=== PATIENT | male | born 1945 | race Caucasian/White ===

== ENCOUNTER 2016-10-07 00:01 | Inpatient (IN) | payer MEDICARE, OTHER ==
[~2016-10-07] VITALS: Ht 177.8 cm; Wt 101.7 kg
[2016-10-07] VITALS (7 sets, daily range): BP systolic 134–157; BP diastolic 58–87; PULSE 59–669; TEMP 97.4–98.5
[~2016-10-07 00:01] MED LIST: ACTOS 45MG45 MG/TAB PO; ADALAT CC30 MG PO; FLOMAX 0.40.4 MG/CAP PO; FORTAMET1000 MG PO; HCTZ 25MG25 MG PO; LOTREL 10 MG-401 CAP PO; PROSCAR PO; VYTORIN
[2016-10-07 00:35] LABS: BASO # 0.1 (0.0-0.2); BASO % 0.6 % (0.0-2.0); EOS # 0.2 (0.0-0.7); EOS % 2.1 % (0-4.0); GRAN # 5.6 (1.4-6.5); GRAN % 65.7 % (42.2-75.2); HEMOGLOBIN 17.9 g/dl (13.5-18.0); LYMPH # 1.8 (1.2-3.4); LYMPH % 20.8 % (20.0-51.0); MEAN CELL VOLUME 88 fl (80.0-100.0); MEAN CORPUSCULAR HEMOGLOBIN 30 pg (27.0-31.0); MEAN CORPUSCULAR HGB CONC 34 g/dl (33.0-37.0); MEAN PLATELET VOLUME 10.6 fl (7.4-10.4); MONO # 0.9 (0.1-0.6); MONO % 10.6 % (1.7-9.3); PLATELET COUNT 151 K/mm3 (130-400); RED BLOOD COUNT 6.06 M/mm3 (4.20-5.60); REDCELL DISTRIBUTION WIDTH-CV 17.2 % (11.5-14.5); WHITE BLOOD COUNT 8.5 K/mm3 (4.8-10.8)
[2016-10-07 00:37] LABS: HEMATOCRIT 53.4 % (42.0-52.0)
[2016-10-07 00:48] LABS: ADJUSTED CALCIUM 9.5 mg/dL (8.4-10.2); ALANINE AMINOTRANSFERASE 35 U/L (21-72); ALBUMIN 4.3 gm/dL (3.5-5.0); ALKALINE PHOSPHATASE 95 U/L (50-136); ANION GAP 15 mmol/L (7-16); BILIRUBIN,TOTAL 0.9 mg/dL (0.0-1.0); BLOOD UREA NITROGEN 25 mg/dL (9-20); CALCIUM 9.7 mg/dL (8.4-10.2); CARBON DIOXIDE 26 mmol/L (22-30); CHLORIDE 101 mmol/L (98-107); CREATININE, serum 1.24 mg/dL (0.66-1.25); GLUCOSE 167 mg/dL (74-106); MAGNESIUM 1.9 mg/dL (1.6-2.3); PHOSPHOROUS 3.9 mg/dL (2.5-4.5); POTASSIUM 3.8 mmol/L (3.4-5.0); SODIUM 141 mmol/L (137-145); TOTAL PROTEIN 7.9 gm/dL (6.4-8.2)
[2016-10-07 00:59] LABS: TROPONIN-I < 0.012 ng/mL (0.000-0.034)
[2016-10-07 01:09] LABS: PARTIAL THROMBOPLASTIN TIME 28.9 SECONDS (26.0-37.0)
[2016-10-07 01:18] LABS: INR 0.9 (0.8-3.0); PROTHROMBIN TIME 10.4 SECONDS (9.7-12.8)
[2016-10-07] MEDS ORDERED: JANUVIA50 MG PO (03:51)
[2016-10-07] MEDS ORDERED: GLUCOTROL 5M5 MG/TAB PO (03:51)
[2016-10-07] MEDS ORDERED: GLUCOPHAGE1000 MG PO (05:17)
[2016-10-07] MEDS ORDERED: VITAMIN C500 MG PO (05:21)
[2016-10-07] MEDS ORDERED: VIAGRA100 M1 PO (05:23)
[2016-10-07] MEDS ORDERED: GLUCOSAMINE & C1 CA1 PO (05:28)
[2016-10-07] MEDS ORDERED: FARXIGA10 PO (05:29)
[2016-10-07] MEDS ORDERED: HYGROTON 2525 MG/TAB PO (05:30)
[2016-10-07] MEDS ORDERED: DEPO-TESTOS100 MG/ML IM (05:46)
[2016-10-08] VITALS (9 sets, daily range): BP systolic 124–163; BP diastolic 58–96; PULSE 53–74; TEMP 9.7
[2016-10-08 11:11] LABS: PH 5 (5-8); SQUAMOUS EPITHELIAL 0-2 /hpf; URINE APPEARANCE Clear; URINE BACTERIA None Seen /hpf; URINE BILIRUBIN Negative (NEGATIVE); URINE BLOOD Negative (NEGATIVE); URINE COLOR Yellow; URINE GLUCOSE 3+ (NEGATIVE); URINE KETONE Negative (NEGATIVE); URINE RBC 0-2 /hpf; URINE UROBILINOGEN Negative (NEGATIVE); URINE WBC 0-2 /hpf
[2016-10-09 03:28] VITALS: BP 161/82; PULSE 56; TEMP 98.1
[2016-10-09 07:57] VITALS: BP 150/84; PULSE 69; TEMP 98.1
[2016-10-09] MEDS ORDERED: PLAVIX 75MG TAB75 MG PO (09:43)
[2016-10-09] MEDS ORDERED: ASPIRIN E.C. 8181 MG PO (09:43)
[2016-10-09] MEDS ORDERED: VYTORIN 10 MG-11 TAB PO (10:07)
[2016-10-09 10:09] VITALS: BP 150/84; PULSE 69; TEMP 98.1
== END 2016-10-09 11:59 | DRG 66 ==
LOC: COL.ER 00:01 → MEDICAL 01:40
PROVIDERS: Emergency Medicine; Family Medicine
DX: I63.9 Cerebral infarction, unspecified (principal); E11.9 Type 2 diabetes mellitus without complications; E78.5 Hyperlipidemia, unspecified; I10 Essential (primary) hypertension; H53.2 Diplopia; R26.0 Ataxic gait; R27.8 Other lack of coordination; Z79.84 Long term (current) use of oral hypoglycemic drugs; Z87.891 Personal history of nicotine dependence
CPT/HCPCS: 99222-AI; 99232-AI; 99239; A9585; G9654; J1650; J1815; J2704; J3360; J7030

== ENCOUNTER 2016-10-09 11:28 | Inpatient (IN) | payer MEDICARE, OTHER ==
[~2016-10-09] VITALS: Ht 177.8 cm; Wt 93.1 kg
[~2016-10-09 11:28] MED LIST changes: +ASPIRIN E.C. 8181 MG PO; +DEPO-TESTOS100 MG/ML IM; +FARXIGA10 PO; +GLUCOPHAGE1000 MG PO; +GLUCOSAMINE & C1 CA1 PO; +GLUCOTROL 5M5 MG/TAB PO; +HYGROTON 2525 MG/TAB PO; +JANUVIA50 MG PO; +PLAVIX 75MG TAB75 MG PO; +VIAGRA100 M1 PO; +VITAMIN C500 MG PO; +VYTORIN 10 MG-11 TAB PO
[2016-10-09 13:55] VITALS: BP 157/93; PULSE 73; TEMP 96.8
[2016-10-09 18:00] VITALS: BP 139/89; PULSE 81; TEMP 97
[2016-10-10 05:26] VITALS: BP 149/87; PULSE 68; TEMP 97.6
[2016-10-10 16:19] VITALS: BP 150/86; PULSE 71; TEMP 97.1
[2016-10-11 04:12] VITALS: BP 140/87; PULSE 86; TEMP 97.5
[2016-10-11 16:39] VITALS: BP 145/79; PULSE 97; TEMP 98.5
[2016-10-12 04:08] VITALS: BP 151/82; PULSE 77; TEMP 97.4
[2016-10-12 16:22] VITALS: BP 180/90; PULSE 83; TEMP 97.8
[2016-10-13 04:33] VITALS: BP 164/87; PULSE 67; TEMP 96.9
[2016-10-14 04:18] VITALS: BP 162/82; PULSE 68; TEMP 97
[2016-10-14 14:52] VITALS: BP 163/92; PULSE 75; TEMP 98.4
[2016-10-15 05:24] VITALS: BP 155/88; PULSE 74; TEMP 97.6
[2016-10-15 17:41] VITALS: BP 153/82; PULSE 85; TEMP 98.4
[2016-10-16 06:08] VITALS: BP 174/86; PULSE 69; TEMP 98.1
[2016-10-17 05:00] VITALS: BP 184/72; PULSE 63; TEMP 97.2
[2016-10-17 17:24] VITALS: BP 155/91; PULSE 75; TEMP 97.1
[2016-10-18 02:30] VITALS: BP 172/98; PULSE 65; TEMP 98.5
[2016-10-18 06:42] VITALS: BP 173/91
[2016-10-18] MEDS ORDERED: LOTENSIN20 MG PO (09:58)
[2016-10-18] MEDS ORDERED: PROCARDIA XL 3030 MG PO (09:59)
[2016-10-18 18:02] VITALS: BP 162/87; PULSE 66; TEMP 96.6
[2016-10-19] VITALS (11 sets, daily range): BP systolic 100–167; BP diastolic 60–97; PULSE 71–111; TEMP 97–98.7
[2016-10-19 18:11] LABS: CALCIUM 9.8 mg/dL (8.4-10.2); CREATININE, serum 1.3 mg/dL (0.66-1.25); MAGNESIUM 2.1 mg/dL (1.6-2.3); POTASSIUM 3.9 mmol/L (3.4-5.0)
[2016-10-20 05:52] VITALS: BP 160/86; PULSE 65; TEMP 98.3
[2016-10-20 16:27] VITALS: BP 156/90; PULSE 66; TEMP 97.4
[2016-10-21 05:01] VITALS: BP 168/85; PULSE 65; TEMP 98.5
[2016-10-21 15:55] VITALS: BP 172/74; PULSE 74; TEMP 96.9
[2016-10-22 03:51] VITALS: BP 156/84; PULSE 60; TEMP 98.2
[2016-10-22 17:03] VITALS: BP 154/77; PULSE 70; TEMP 98.6
[2016-10-23 04:58] VITALS: BP 155/86; PULSE 68; TEMP 98.2
[2016-10-23 17:51] VITALS: BP 146/74; PULSE 72; TEMP 97.8
[2016-10-24 04:16] VITALS: BP 155/71; PULSE 69; TEMP 97.5
[2016-10-24] MEDS ORDERED: LOTENSIN 1010 MG/TAB PO (12:32)
== END 2016-10-24 16:30 | disposition home or self-care (01) | DRG 57 ==
PROVIDERS: Internal Medicine
DX: I69.351 Hemiplegia and hemiparesis following cerebral infarction affecting right dominant side (principal); I69.393 Ataxia following cerebral infarction; I69.398 Other sequelae of cerebral infarction; H53.2 Diplopia; I10 Essential (primary) hypertension; E11.9 Type 2 diabetes mellitus without complications
CPT/HCPCS: 99222-AI; 99232-AI; 99233-AI; 99239; J1650; J1815

== ENCOUNTER → 2016-10-31 | Outpatient (CLI) | payer MEDICARE, OTHER ==
[~2016-10-31] MED LIST changes: +LOTENSIN 1010 MG/TAB PO; +LOTENSIN20 MG PO; +PROCARDIA XL 3030 MG PO
== END ==
LOC: COL.RAD 11:20
DX: I63.9 Cerebral infarction, unspecified (principal); I63.8 Other cerebral infarction
CPT/HCPCS: Q9967

== ENCOUNTER 2016-12-25 09:15 | Outpatient (RCR) | payer MEDICARE, OTHER | END 2016-12-28 10:51 | disposition home or self-care (01) | LOC: WSPT 09:15 | DX: I69.354 Hemiplegia and hemiparesis following cerebral infarction affecting left non-dominant side (principal) | CPT/HCPCS: G8978-GP; G8979-GP; G8980-GP; G8987-GO; G8988-GO; G8989-GO ==

== ENCOUNTER 2017-06-16 16:32 | Emergency (ER) | payer MEDICARE, OTHER ==
[~2017-06-16] VITALS: Ht 177.8 cm; Wt 97.3 kg
[2017-06-16 16:38] VITALS: TEMP 98
[2017-06-16] MEDS ORDERED: BYDUREON PEN2 MG SQ (16:55)
[2017-06-16 17:32] LABS: BASO # 0.1 (0.0-0.2); EOS # 0.2 (0.0-0.7); EOS % 2.7 % (0-4.0); GRAN # 4.2 (1.4-6.5); GRAN % 68.4 % (42.2-75.2); HEMATOCRIT 50.2 % (42.0-52.0); HEMOGLOBIN 16.4 g/dl (13.5-18.0); LYMPH # 1.1 (1.2-3.4); LYMPH % 17.3 % (20.0-51.0); MEAN CELL VOLUME 94 fl (80.0-100.0); MEAN CORPUSCULAR HEMOGLOBIN 31 pg (27.0-31.0); MEAN CORPUSCULAR HGB CONC 33 g/dl (33.0-37.0); MEAN PLATELET VOLUME 10.7 fl (7.4-10.4); MONO # 0.6 (0.1-0.6); MONO % 10.3 % (1.7-9.3); PLATELET COUNT 168 K/mm3 (130-400); RED BLOOD COUNT 5.32 M/mm3 (4.20-5.60); WHITE BLOOD COUNT 6.2 K/mm3 (4.8-10.8)
[2017-06-16 17:42] LABS: ALBUMIN 4.6 gm/dL (3.5-5.0); BILIRUBIN,TOTAL 0.6 mg/dL (0.0-1.0); CALCIUM 9.5 mg/dL (8.4-10.2); CREATININE, serum 1.23 mg/dL (0.66-1.25); MAGNESIUM 1.9 mg/dL (1.6-2.3); POTASSIUM 3.9 mmol/L (3.4-5.0); TOTAL PROTEIN 7.5 gm/dL (6.4-8.2)
[2017-06-16 18:14] VITALS: BP 181/94; PULSE 74
== END 2017-06-16 18:14 | disposition home or self-care (01) ==
LOC: COL.ER 16:32
PROVIDERS: Emergency Medicine
DX: R20.2 Paresthesia of skin (principal); E11.9 Type 2 diabetes mellitus without complications; I10 Essential (primary) hypertension; E78.5 Hyperlipidemia, unspecified; Z87.891 Personal history of nicotine dependence; Z86.73 Personal history of transient ischemic attack (TIA), and cerebral infarction without residual deficits; Z79.82 Long term (current) use of aspirin; Z79.84 Long term (current) use of oral hypoglycemic drugs

== ENCOUNTER → 2017-06-17 | Outpatient (CLI) | payer MEDICARE, OTHER ==
[~2017-06-17] MED LIST changes: +BYDUREON PEN2 MG SQ
== END ==
LOC: COL.RAD 08:34
DX: I67.82 Cerebral ischemia (principal); G31.9 Degenerative disease of nervous system, unspecified; I63.9 Cerebral infarction, unspecified
CPT/HCPCS: A9585

== ENCOUNTER 2018-10-02 15:45 | Outpatient (RCR) | payer MEDICARE, OTHER | END 2018-10-06 | disposition home or self-care (01) | LOC: WSPT | DX: I69.398 Other sequelae of cerebral infarction (principal); R26.89 Other abnormalities of gait and mobility | CPT/HCPCS: G8978-GP; G8979-GP ==

== ENCOUNTER 2018-10-20 09:45 | Outpatient (RCR) | payer MEDICARE, OTHER | END 2018-12-09 12:42 | disposition home or self-care (01) | LOC: WSPT 09:45 | DX: I63.542 Cerebral infarction due to unspecified occlusion or stenosis of left cerebellar artery (principal) ==

== ENCOUNTER 2018-12-10 10:45 | Outpatient (RCR) | payer MEDICARE, OTHER | END 2018-12-17 10:26 | disposition home or self-care (01) | LOC: WSPT 10:45 | DX: Z01.818 Encounter for other preprocedural examination (principal) ==

== ENCOUNTER → 2019-03-03 | Outpatient (CLI) | payer MEDICARE, OTHER ==
[2019-03-03 12:18] LABS: BASO # 0.1 (0.0-0.2); BASO % 0.7 % (0.0-2.0); EOS # 0.2 (0.0-0.7); GRAN # 5.1 (1.4-6.5); GRAN % 70.1 % (42.2-75.2); HEMATOCRIT 40.5 % (42.0-52.0); HEMOGLOBIN 13.3 g/dl (13.5-18.0); LYMPH # 1.2 (1.2-3.4); LYMPH % 16.9 % (20.0-51.0); MEAN CELL VOLUME 94 fl (80.0-100.0); MEAN CORPUSCULAR HEMOGLOBIN 31 pg (27.0-31.0); MEAN CORPUSCULAR HGB CONC 33 g/dl (33.0-37.0); MEAN PLATELET VOLUME 10.5 fl (7.4-10.4); MONO # 0.7 (0.1-0.6); PLATELET COUNT 182 K/mm3 (130-400); RED BLOOD COUNT 4.32 M/mm3 (4.20-5.60); REDCELL DISTRIBUTION WIDTH-CV 13.7 % (11.5-14.5)
[2019-03-03 12:42] LABS: ERYTHROCYTE SEDIMENTATION RATE 4 mm/hr (0-30)
== END ==
LOC: COL.LAB 11:55
PROVIDERS: Orthopaedic Surgery Sports Medicine
DX: M25.561 Pain in right knee (principal); Z96.651 Presence of right artificial knee joint

== ENCOUNTER → 2019-03-23 | Outpatient (RCR) | payer MEDICARE, OTHER | END | disposition still patient (30) | LOC: WSPT | DX: M17.11 Unilateral primary osteoarthritis, right knee (principal); Z96.651 Presence of right artificial knee joint | CPT/HCPCS: G0283-GP ==

== ENCOUNTER 2019-04-17 14:09 | Outpatient (RCR) | payer MEDICARE, OTHER | END 2019-04-17 14:30 | disposition home or self-care (01) | LOC: WSPT 14:09 | DX: Z96.651 Presence of right artificial knee joint (principal) | CPT/HCPCS: G0283-GP ==

== ENCOUNTER → 2019-05-14 | Outpatient (CLI) | payer MEDICARE, OTHER | LOC: COL.RAD 15:18 | DX: M25.561 Pain in right knee (principal); Z96.651 Presence of right artificial knee joint ==

== ENCOUNTER 2020-01-20 16:55 | Emergency (ER) | payer MEDICARE, OTHER ==
[~2020-01-20] VITALS: Ht 177.8 cm; Wt 118.2 kg
[2020-01-20 17:17] VITALS: TEMP 98.3
[2020-01-20 18:47] LABS: BASO % 0.5 % (0.0-2.0); EOS # 0.3 (0.0-0.7); EOS % 3.6 % (0-4.0); GRAN # 5.3 (1.4-6.5); GRAN % 71.4 % (42.2-75.2); HEMATOCRIT 39.1 % (42.0-52.0); HEMOGLOBIN 12.8 g/dl (13.5-18.0); LYMPH # 1.2 (1.2-3.4); LYMPH % 15.5 % (20.0-51.0); MEAN CELL VOLUME 94 fl (80.0-100.0); MEAN CORPUSCULAR HEMOGLOBIN 31 pg (27.0-31.0); MEAN CORPUSCULAR HGB CONC 33 g/dl (33.0-37.0); MEAN PLATELET VOLUME 11.4 fl (7.4-10.4); MONO # 0.6 (0.1-0.6); MONO % 8.6 % (1.7-9.3); PLATELET COUNT 169 K/mm3 (130-400); RED BLOOD COUNT 4.18 M/mm3 (4.20-5.60); REDCELL DISTRIBUTION WIDTH-CV 14.6 % (11.5-14.5)
[2020-01-20 18:59] LABS: ANION GAP 11 mmol/L (7-16); BLOOD UREA NITROGEN 38 mg/dL (9-20); CALCIUM 9.4 mg/dL (8.4-10.2); CARBON DIOXIDE 22 mmol/L (22-30); CHLORIDE 104 mmol/L (98-107); CREATININE, serum 1.47 (0.66-1.25); GLUCOSE 288 mg/dL (74-106); POTASSIUM 4.3 mmol/L (3.4-5.0); SODIUM 137 mmol/L (137-145)
[2020-01-20 19:12] LABS: TROPONIN-I < 0.012 ng/mL (0.000-0.035)
[2020-01-20 23:13] VITALS: BP 175/98; PULSE 70
[2020-01-21] MEDS ORDERED: ALLEGRA 180MG180 MG PO (01:07)
[2020-01-21] MEDS ORDERED: LEXAPRO 5MG5 MG PO (01:07)
[2020-01-21] MEDS ORDERED: INSULIN PEN NE1 EAC1 MC (01:08)
[2020-01-21] MEDS ORDERED: BENICAR40 MG PO (01:08)
[2020-01-21] MEDS ORDERED: TOUJEO300 U/ML SQ (01:08)
== END 2020-01-20 23:15 | disposition home or self-care (01) ==
LOC: COL.ER 16:55
PROVIDERS: Emergency Medicine
DX: S00.412A Abrasion of left ear, initial encounter (principal); H92.22 Otorrhagia, left ear; I10 Essential (primary) hypertension; E78.5 Hyperlipidemia, unspecified; Z86.73 Personal history of transient ischemic attack (TIA), and cerebral infarction without residual deficits; Z79.02 Long term (current) use of antithrombotics/antiplatelets; Z79.82 Long term (current) use of aspirin; X58.XXXA Exposure to other specified factors, initial encounter
CPT/HCPCS: J0360

== ENCOUNTER 2022-09-20 13:36 | Emergency (ER) | payer MEDICARE ==
[~2022-09-20] VITALS: Ht 175.3 cm; Wt 120.5 kg
[~2022-09-20 13:36] MED LIST changes: +ALLEGRA 180MG180 MG PO; +BENICAR40 MG PO; +INSULIN PEN NE1 EAC1 MC; +LEXAPRO 5MG5 MG PO; +TOUJEO300 U/ML SQ
[2022-09-20 13:46] VITALS: TEMP 98.6
[2022-09-20 14:46] LABS: BASO % 0.4 % (0.0-2.0); EOS # 0.2 K/mm3 (0.0-0.7); EOS % 2.3 % (0.0-4.0); GRAN # 4.8 K/mm3 (1.4-6.5); GRAN % 70.9 % (42.2-75.2); HEMATOCRIT 37.9 % (42.0-52.0); HEMOGLOBIN 12.3 g/dl (13.5-18.0); LYMPH # 1.1 K/mm3 (1.2-3.4); LYMPH % 16.1 % (20.0-51.0); MEAN CELL VOLUME 99 fl (80.0-100.0); MEAN CORPUSCULAR HEMOGLOBIN 32 pg (27-31); MEAN CORPUSCULAR HGB CONC 33 g/dl (33.0-37.0); MEAN PLATELET VOLUME 11.2 fl (7.4-10.4); MONO # 0.7 K/mm3 (0.1-0.6); PLATELET COUNT 165 K/mm3 (130-400); RED BLOOD COUNT 3.84 M/mm3 (4.20-5.60); REDCELL DISTRIBUTION WIDTH-CV 13.7 % (11.5-14.5)
[2022-09-20 14:50] LABS: PROTHROMBIN TIME 11.3 SECONDS (9.7-12.8)
[2022-09-20 14:53] LABS: PARTIAL THROMBOPLASTIN TIME 26.6 SECONDS (26.0-37.0)
[2022-09-20 15:06] LABS: BILIRUBIN,TOTAL 0.3 mg/dL (0.2-1.2); CALCIUM 9.9 mg/dL (8.4-10.2); CREATININE, serum 2.46 mg/dL (0.72-1.25); TOTAL PROTEIN 7.8 gm/dL (6.2-8.1)
[2022-09-20 15:11] LABS: TROPONIN-I 0.015 ng/mL (0.00-0.033)
[2022-09-20 15:13] LABS: POTASSIUM 7.2 mmol/L (3.5-4.5)
[2022-09-20] MEDS ORDERED: NORVASC 10MG10 MG PO (16:44)
[2022-09-20] MEDS ORDERED: CATAPRES0.2 MG PO (16:45)
[2022-09-20] MEDS ORDERED: ALLEGRA ALLERG180 MG PO (16:46)
[2022-09-20] MEDS ORDERED: VYTORIN 10 MG-11 TAB PO (16:46)
[2022-09-20] MEDS ORDERED: MINOXIDIL 10 PO (16:48)
[2022-09-20] MEDS ORDERED: ALDACTONE 25MG25 M1 PO (16:49)
[2022-09-20] MEDS ORDERED: TRULICITY1.5 MG/0.5 SQ (16:50)
[2022-09-20] MEDS ORDERED: TOUJEO300 U/ML SQ (16:52)
[2022-09-20 22:37] VITALS: BP 154/77; PULSE 80
== END 2022-09-20 22:40 | disposition short-term general hospital (02) ==
LOC: COL.ER 13:36
PROVIDERS: Family Medicine
DX: N17.9 Acute kidney failure, unspecified (principal); E87.5 Hyperkalemia; I12.9 Hypertensive chronic kidney disease with stage 1 through stage 4 chronic kidney disease, or unspecified chronic kidney disease; E11.22 Type 2 diabetes mellitus with diabetic chronic kidney disease; N18.9 Chronic kidney disease, unspecified
CPT/HCPCS: A9270; J0610; J1815

== ENCOUNTER 2023-05-20 14:18 | Emergency (ER) | payer MEDICARE ==
[~2023-05-20] VITALS: Ht 177.8 cm; Wt 116.4 kg
[~2023-05-20 14:18] MED LIST changes: +ALDACTONE 25MG25 M1 PO; +ALLEGRA ALLERG180 MG PO; +CATAPRES0.2 MG PO; +MINOXIDIL 10 PO; +NORVASC 10MG10 MG PO; +TRULICITY1.5 MG/0.5 SQ
[2023-05-20 15:18] LABS: BASO % 0.4 % (0.0-2.0); EOS # 0.1 K/mm3 (0.0-0.7); EOS % 1.4 % (0.0-4.0); GRAN # 8.1 K/mm3 (1.4-6.5); GRAN % 80.2 % (42.2-75.2); HEMOGLOBIN 10.5 g/dl (13.5-18.0); LYMPH % 9.4 % (20.0-51.0); MEAN CELL VOLUME 102 fl (80.0-100.0); MEAN CORPUSCULAR HEMOGLOBIN 32 pg (27-31); MEAN CORPUSCULAR HGB CONC 32 g/dl (33.0-37.0); MEAN PLATELET VOLUME 11.3 fl (7.4-10.4); MONO # 0.8 K/mm3 (0.1-0.6); MONO % 8.2 % (1.7-9.3); PLATELET COUNT 239 K/mm3 (130-400); RED BLOOD COUNT 3.26 M/mm3 (4.20-5.60); REDCELL DISTRIBUTION WIDTH-CV 15.9 % (11.5-14.5)
[2023-05-20 15:20] LABS: HEMATOCRIT 33.1 % (42.0-52.0)
[2023-05-20 15:35] LABS: ACETONE,SERUM NEGATIVE
[2023-05-20 15:43] LABS: ALANINE AMINOTRANSFERASE 30 U/L (0-55); ALKALINE PHOSPHATASE 110 U/L (40-150); ANION GAP 13 mmol/L (7-16); AST,SGOT 32 U/L (5-34); BILIRUBIN,TOTAL 0.5 mg/dL (0.2-1.2); BLOOD UREA NITROGEN 74 mg/dL (8-26); CALCIUM 9.8 mg/dL (8.4-10.2); CARBON DIOXIDE 18 mmol/L (23-31); CHLORIDE 105 mmol/L (98-107); CREATININE, serum 3.52 mg/dL (0.72-1.25); GLUCOSE 265 mg/dL (70-99); LIPASE 34 U/L (8-78); SODIUM 136 mmol/L (136-145); TOTAL PROTEIN 7.8 gm/dL (6.2-8.1)
[2023-05-20 18:32] LABS: COLLECTION METHOD CLEAN CATCH
[2023-05-20 18:49] LABS: URINE APPEARANCE Clear (CLEAR/HAZY); URINE COLOR Yellow (YELLOW)
[2023-05-20 18:50] LABS: URINE BLOOD Negative (NEGATIVE); URINE GLUCOSE Negative (NEGATIVE); URINE KETONE TRACE (NEGATIVE); URINE NITRATE Negative (NEGATIVE); URINE PROTEIN(semi-quant) Negative (NEGATIVE); URINE RBC 0-2 /hpf (0-2)
[2023-05-20 19:37] VITALS: BP 140/75; PULSE 78; TEMP 98.4
== END 2023-05-20 19:37 | disposition home or self-care (01) ==
LOC: COL.ER 14:18
PROVIDERS: Physician Assistant
DX: I12.9 Hypertensive chronic kidney disease with stage 1 through stage 4 chronic kidney disease, or unspecified chronic kidney disease (principal); E11.22 Type 2 diabetes mellitus with diabetic chronic kidney disease; N18.9 Chronic kidney disease, unspecified; N17.9 Acute kidney failure, unspecified; Z79.85 Long-term (current) use of injectable non-insulin antidiabetic drugs; Z79.4 Long term (current) use of insulin; Z87.891 Personal history of nicotine dependence
CPT/HCPCS: J7030